=== PATIENT | male | born 1965 | race Hispanic/Latino ===

== ENCOUNTER 2019-07-28 11:07 | Emergency (ER) | payer SELFPAY ==
[~2019-07-28] VITALS: Ht 156.2 cm; Wt 70.0 kg
[~2019-07-28 11:07] MED LIST: CIPRO XR500 MG PO; CIPROFLOXACN500 MG PO; CLONIDINE0.1 MG PO; ENALAPRIL2.5 MG PO; FLAGYL500 MG PO; LISINOPRIL20 MG PO; LORTAB 7.5 PO; METOPROL TAR100 MG PO; NO; TYLENOL & COD12.5 ML PO
[2019-07-28 11:58] LABS: URINE BILIRUBIN - DIPSTICK NEGATIVE (NEGATIVE); URINE BLOOD DIPSTICK NEGATIVE (NEGATIVE); URINE COLOR YELLOW; URINE GLUCOSE - DIPSTICK 100 mg/dL (NEGATIVE); URINE KETONE NEGATIVE (NEGATIVE); URINE LEUK ESTERASE NEGATIVE (NEGATIVE); URINE NITRITE - DIPSTICK NEGATIVE (Negative); URINE SPECIFIC GRAVITY 1.015
[2019-07-28 12:01] LABS: URINE PROTEIN - DIPSTICK Trace mg/dL (NEG-TRACE)
[2019-07-28 12:02] LABS: HEMOGLOBIN 13.4 g/dl (14.0-18.0); IMMATURE GRANULOCYTES 0.3 % (0.0-5.0); MEAN CELL VOLUME 87.4 fL CALC (80.0-100.0); MEAN CORPUSCULAR HGB 27.2 pG CALC (26.0-32.0); MEAN CORPUSCULAR HGB CONC 31.2 g/L CALC (32.0-36.0); NEUT# 3.87 thou/uL (1.82-7.42); RED BLOOD COUNT 4.92 mill/uL (4.70-6.10); RED CELL DISTRI WIDTH 15.4 % (11.5-15.5)
[2019-07-28 12:17] LABS: ANION GAP 15 (6-22 (CALC)); BUN 15 mg/dL (9-20); BUN/CREATININE RATIO 15 (12-20 (CALC)); CARBON DIOXIDE 30 mmol/l (22-30); CHLORIDE 96 mmol/l (95-108); GFR > 60 ML/MIN (>=60 (CALC)); GFR FOR AFR.AMER. > 60 ML/MIN (>=60 (CALC)); POTASSIUM 4.4 mmol/l (3.5-5.1); SODIUM 136 mmol/l (137-146)
[2019-07-28 16:04] VITALS: BP 158/99
[2019-07-29] MEDS ORDERED: MOTRIN400 MG PO (10:53)
== END 2019-07-28 16:04 | disposition home or self-care (01) | DRG 730 ==
LOC: ED 11:07
PROVIDERS: Family Medicine
DX: N50.812 Left testicular pain (principal); S86.912A Strain of unspecified muscle(s) and tendon(s) at lower leg level, left leg, initial encounter; X58.XXXA Exposure to other specified factors, initial encounter; I10 Essential (primary) hypertension

== ENCOUNTER 2019-07-29 09:03 | Emergency (ER) | payer SELFPAY ==
[~2019-07-29] VITALS: Ht 156.2 cm; Wt 75.0 kg
[2019-07-29] MEDS ORDERED: MOTRIN400 MG PO (10:53)
[2019-07-29 10:58] VITALS: BP 153/106
== END 2019-07-29 11:03 | disposition home or self-care (01) | DRG 538 ==
LOC: ED 09:03
DX: S76.812A Strain of other specified muscles, fascia and tendons at thigh level, left thigh, initial encounter (principal); N50.812 Left testicular pain